=== PATIENT | female | born 1975 | race Two or more races ===

== ENCOUNTER 2020-05-22 11:59 | Inpatient (IN) | payer MEDICAID, OTHER ==
[~2020-05-22] VITALS: Ht 157.5 cm; Wt 80.6 kg
[2020-05-22] MEDS ORDERED: ACETAMINOPHEN 325 MG TAB PO ONE (13:15)
[2020-05-22] MEDS ORDERED: AZITHROMYCIN 500MG/ 250ML 250 ML IV ONE (13:15)
[2020-05-22] MEDS ORDERED: PANTOPRAZOLE 40 MG/10 ML VIAL INJ IV ONE (13:15)
[2020-05-22] MEDS ORDERED: ASCORBIC ACID 500 MG TAB PO ONE (13:15)
[2020-05-22] MEDS ORDERED: methylPREDNISolone SOD SUCC 125 MG/2 ML VL IV ONE (13:15)
[2020-05-22] MEDS ORDERED: ZINC SULFATE 220mg CAP or TAB PO ONE (13:15)
[2020-05-22 14:27] LABS: Basophils # (auto) 0 10 ^3/uL (0-0.2); Eosinophils # (auto) 0 10 ^3/uL (0-0.8); Lymphocytes # (auto) 0.6 10 ^3/uL (0.4-5.4); Monocytes # (auto) 0.2 10 ^3/uL (0-1.3); White Blood Cell 3.4 10^3/uL (4.4-10.8)
[2020-05-22] MEDS ORDERED: ENOXAPARIN SOD 100 MG/1 ML SYRINGE SC ONE (14:30)
[2020-05-22 14:31] LABS: Basophils % (auto) 0.4 % (0.0-2.0); Lymphocytes % (auto) 17.6 % (10.0-50.0); Mean Corpuscular Hemoglobin 12.9 pg (28.0-32.0); Mean Corpuscular Hgb Conc. 25.8 g/dL (32.0-36.0); Monocytes % (auto) 7.1 % (0.0-12.0); Neutrophils # (auto) 2.5 10 ^3/uL (1.6-8.6); Neutrophils % (auto) 74.9 % (37.0-80.0); Nucleated Red Blood Cells % 0.7 %; Platelet Count (auto) 334 10^3/uL (140-450); Red Blood Cells 4.61 10^6/uL (4.0-5.20)
[2020-05-22 14:49] LABS: Albumin 3.5 g/dL (3.4-5.0); BUN/Creatinine Ratio 9.9; Calcium 7.8 mg/dL (8.5-10.1); Potassium 3.4 mmol/L (3.5-5.1)
[2020-05-22 14:51] LABS: Total Protein 7.9 g/dL (6.4-8.2)
[2020-05-22 14:55] LABS: Hemoglobin 5.9 g/dL (12.2-16.2)
[2020-05-22] MEDS ORDERED: SODIUM CHLORIDE 0.9% 1,000 ML IV SCH (14:57)
[2020-05-22] MEDS ORDERED: NITROGLYCERIN 0.4 MG SL TAB SL PRN (15:00)
[2020-05-22] MEDS ORDERED: MORPHINE SULF INJ 2 MG/ML SYRINGE 1ML IV PRN (15:00)
[2020-05-22 15:16] LABS: CRP High Sensitivity 7.09 mg/dL (< 0.3)
[2020-05-22] MEDS ORDERED: levoFLOXacin 500MG 100 ML IV ONE (15:30)
[2020-05-22] MEDS: SODIUM CHLORIDE 0.9% 1,000 ML IV SCH (15:48)
--- NOTE | 2020-05-22 16:05 | NUR ---
Telemetry admit from [facility] admitted to Telemetry unit after SBAR received. Patient oriented to AXEL MIDDLETON RN primary RN, unit, room, bed, and unit policies regarding patient care and visiting hours. Patient now on continuous telemetry monitoring, tele box #19 and telemetry reading on arrival to unit is SR. Patient placed on bedside oxygen, weighed by bedscale and encouraged to call if they need something. All questions and concerns addressed, patient verbalized understanding.
--- NOTE | 2020-05-22 17:30 | NUR ---
Temp Patient running temp of 100.4. Cooling measures preformed at this time. Will cont to monitor patient.
[2020-05-22 17:41] LABS: INR 0.99 (0.9-1.15); Partial Thromboplastin Time 30.3 sec (23.64-32.05)
[2020-05-22 17:43] VITALS: BP 105/43
[2020-05-22 18:39] LABS: Hematocrit 23.4 % (36.0-46.0)
--- NOTE | 2020-05-22 18:45 | NUR ---
Hospitalist Paged hospitalist Surinder regarding patient having no diet. Per MD Cadena, place patient on a regular diet. MD Cadena also made aware of patient HGB 6.1 and HCT 23.4. Per MD Cadena, order one unit of RBC's. Will carry out new orders and cont to monitor patient.
[2020-05-22 18:53] LABS: Hemoglobin 6.1 g/dL (12.2-16.2)
--- NOTE | 2020-05-22 19:30 | NUR ---
Endorsed care to night RN, including HGB and RBC'S orders.
[2020-05-22 22:00] VITALS: BP 109/54
[2020-05-22] MEDS: ALBUTEROL SULF HFA 90MCG INH 200DOSE IN SCH ×2 (22:00→22:45)
[2020-05-22 22:30] VITALS: BP 106/50
[2020-05-22] MEDS: metroNIDAZOLE 500MG/100ML 100 ML IV SCH (22:42)
[2020-05-22] MEDS: PANTOPRAZOLE 40 MG TAB PO SCH (22:43)
[2020-05-22 22:45] VITALS: BP 107/59
[2020-05-22 23:11] VITALS: BP 107/59
--- NOTE | 2020-05-22 23:21 | NUR ---
RT NOTE: PT ASSESSED FOR MDI TX, PT DENIES SOB AT THIS TIME. NO RESPIRATORY HISTORY NOTED. BS DECREASED WITH NO WHEEZING. SPO2 96%, HR 74, RR 16. WILL WAIT FOR COVID RESULTS FOR TX. PT NOTIFIED IF SOB OCCURS TO HAVE RT PAGED.
--- NOTE | 2020-05-23 | NUR ---
H & h NOT DONE AT THIS TIME, PATIENT IS STILL BEING TRANSFUSED.
[2020-05-23 00:23] VITALS: BP 109/55
[2020-05-23 01:23] LABS: Urine Bacteria FEW /hpf (None Seen); Urine Blood 3+ /uL (Negative); Urine WBC 343 /hpf (0 - 5); Urine WBC Clumps PRESENT /hpf (None Seen)
[2020-05-23] MEDS: SODIUM CHLORIDE 0.9% 1,000 ML IV SCH ×3 (01:38→15:49)
--- NOTE | 2020-05-23 01:40 | NUR ---
TRANSFUSION DONE, NO SIGNS AND SYMPTOMS OF TRANSFUSION REACTION NOTED. CONTINUE PATIENT CARE
--- NOTE | 2020-05-23 02:05 | NUR ---
PAGED HOSPITALIST REGARDING COVID-19 POSITIVE RESULT.
[2020-05-23 05:00] VITALS: BP 99/55
[2020-05-23] MEDS: metroNIDAZOLE 500MG/100ML 100 ML IV SCH ×2 (05:16→13:37)
[2020-05-23 05:51] LABS: Basophils # (auto) 0 10 ^3/uL (0-0.2); Eosinophils # (auto) 0 10 ^3/uL (0-0.8); Lymphocytes # (auto) 0.7 10 ^3/uL (0.4-5.4); Monocytes # (auto) 0.2 10 ^3/uL (0-1.3)
[2020-05-23 05:53] LABS: Basophils % (auto) 0.3 % (0.0-2.0); Eosinophils % (auto) 0.1 % (0.0-7.0); Hematocrit 26.6 % (36.0-46.0); Hemoglobin 7.3 g/dL (12.2-16.2); Lymphocytes % (auto) 18.4 % (10.0-50.0); Mean Corpuscular Hemoglobin 15.4 pg (28.0-32.0); Mean Corpuscular Hgb Conc. 27.6 g/dL (32.0-36.0); Monocytes % (auto) 6.2 % (0.0-12.0); Nucleated Red Blood Cells % 1.5 %; Platelet Count (auto) 338 10^3/uL (140-450); Red Blood Cells 4.75 10^6/uL (4.0-5.20)
[2020-05-23 05:54] LABS: Red Cell Distribution Width 27.4 % (11.8-14.3)
[2020-05-23 06:03] LABS: Albumin 3.3 g/dL (3.4-5.0); Calcium 8.2 mg/dL (8.5-10.1); Potassium 3.6 mmol/L (3.5-5.1)
[2020-05-23 06:06] LABS: BUN/Creatinine Ratio 13.2; Bilirubin, Total 0.8 mg/dL (0.2-1.0); Total Protein 7.2 g/dL (6.4-8.2)
[2020-05-23] MEDS: ALBUTEROL SULF HFA 90MCG INH 200DOSE IN SCH ×3 (07:15→21:45)
[2020-05-23 08:00] VITALS: BP 94/45
[2020-05-23] MEDS: ACETAMINOPHEN 500 MG TAB PO PRN ×3 (08:12→23:42)
--- NOTE | 2020-05-23 08:15 | NUR ---
Received pt resting in bed, call light within reach, pt denies pain at this time, pt's temp 100.2, pt has ice pack, will medicate pt with Tylenol, will continue to monitor pt.
[2020-05-23] MEDS: ZINC SULFATE 220mg CAP or TAB PO SCH (09:00)
[2020-05-23] MEDS: PANTOPRAZOLE 40 MG TAB PO SCH ×2 (09:01→21:45)
[2020-05-23] MEDS: CHOLECALCIFEROL (VITD3) 1,000UNIT=25mCg TAB PO SCH (09:02)
[2020-05-23] MEDS ORDERED: levoFLOXacin 500MG 100 ML IV SCH (10:00)
[2020-05-23] MEDS ORDERED: ENOXAPARIN SOD 40 MG/0.4 ML SYRINGE SC SCH (10:00)
[2020-05-23] MEDS: ASCORBIC ACID 1,000 MG TAB PO SCH (12:22)
[2020-05-23 13:00] VITALS: BP 102/57
--- NOTE | 2020-05-23 13:20 | NUR ---
Dr. Ward at bed side to see pt, doctor discussed plan of care with pt.
--- NOTE | 2020-05-23 15:44 | NUR ---
Called Dr. Ward to ask for pain medication as per pt's request, pt reported generalized body pain, received orders for norco 5/325 mg po q6hr prn.
[2020-05-23] MEDS: HYDROcodone-ACET 5/325MG TAB PO PRN ×2 (15:50→21:45)
--- NOTE | 2020-05-23 15:50 | NUR ---
Pain medication Pt reported to have a headache 04/30, pt requested and given pain medication. Will continue to monitor pt.
--- NOTE | 2020-05-23 15:55 | NUR ---
Est energy needs 5512-3032 kcal (20-23kcal/kg 86.2kg) Est protein needs 50-65g (1-1.3g/kg IBW 50 kg) Will reassess prn. Addendum: 05/23/20 at [address] Amended: Links added.
[2020-05-23 16:39] VITALS: BP 116/49
[2020-05-23] MEDS ORDERED: SODIUM FERR GLUC 62.5MG/5ML 125 MG in SODIUM CHL 0.9% 100 ML IV ONE (17:00)
--- NOTE | 2020-05-23 17:00 | NUR ---
Cooling measures, started, ice packs given, removed extra blankets, will continue to monitor pt.
--- NOTE | 2020-05-23 19:10 | NUR ---
Opening Shift Note Assumed care of patient, awake and alert. No S/S of distress/SOB or pain. Cooling measures remain in place, will continue to monitor. Bed in lowest locked position, side rails up x2, call light within reach. COVID [address] Instructed on POC and to call for assist PRN, will continue to monitor for changes Q1hr and PRN.
--- NOTE | 2020-05-23 21:40 | NUR ---
Patient reporting 8/10 generalized body aches, requesting [place], will administer and continue to monitor.
[2020-05-23 22:00] VITALS: BP 106/54
--- NOTE | 2020-05-23 22:00 | NUR ---
Patient requesting medication for cough, classification counselor hospitalist paged, awaiting call back at this time.
--- NOTE | 2020-05-23 22:10 | NUR ---
Return call from information officer hospitalist Dr. Solo Aaron, new order received for Robitussin DM 10 ml every six hours PRN for cough. Order read back and verified, will implement as ordered and continue to monitor.
[2020-05-23] MEDS: guaiFENesin-DM 100/10mg/5ml SYR PO PRN (22:27)
--- NOTE | 2020-05-24 00:45 | NUR ---
Temperature 102.6 degrees Fahrenheit after Tylenol administration. Cooling measures remain in place, will continue to monitor.
--- NOTE | 2020-05-24 02:00 | NUR ---
Temperature 100.2 degrees Fahrenheit orally at this time. No s/s of distress. Will continue to monitor.
[2020-05-24] MEDS: guaiFENesin-DM 100/10mg/5ml SYR PO PRN (02:37)
[2020-05-24 05:00] VITALS: BP 114/51
[2020-05-24] MEDS: HYDROcodone-ACET 5/325MG TAB PO PRN (05:17)
[2020-05-24] MEDS: ALBUTEROL SULF HFA 90MCG INH 200DOSE IN SCH ×3 (05:17→22:31)
--- NOTE | 2020-05-24 05:17 | NUR ---
MID GIVEN BY MARBIN Perdomo
--- NOTE | 2020-05-24 06:40 | NUR ---
Closing Note Patient lying in bed, eyes closed, respirations even and unlabored, appears asleep. No s/s of distress. Patient awakens to name and touch. Bed in lowest locked position, side rails up x2, call light within reach. Temperature reassessed, 102.7 degrees Fahrenheit orally. Cooling measures remain in place. Will endorse care to dayshift RN.
--- NOTE | 2020-05-24 07:45 | NUR ---
Opening shift note Assumed care of patient from NOC RN. Patient is AOx4 no signs and symptoms of distress noted. Bed is in lowest locked position, side rials up x2 and call light within reach. Updated patient on plan of care and patient verbalized understanding. Will continue to monitor q1hr and PRN.
[2020-05-24 08:40] VITALS: BP 108/63
--- NOTE | 2020-05-24 09:34 | NUR ---
received call from Received call from Dr. Balbuena, per MD patient is to be seen outpatient once COVID negative. No new orders received at this time.
--- NOTE | 2020-05-24 11:45 | NUR ---
Cooling Measures applied. Patient currently has temp of 102.4 , cooling measures in place.
[2020-05-24] MEDS: PANTOPRAZOLE 40 MG TAB PO SCH ×2 (11:50→22:32)
[2020-05-24] MEDS: ZINC SULFATE 220mg CAP or TAB PO SCH (11:50)
[2020-05-24] MEDS: cefTRIAXone 1GM/50ML D5W 50 ML IV SCH (11:50)
[2020-05-24] MEDS: methylPREDNISolone SOD SUCC 40 MG/ML VL IV SCH ×2 (11:50→22:31)
[2020-05-24] MEDS: DOXYCYCLINE 100 MG TAB/CAP PO SCH ×2 (11:51→22:32)
[2020-05-24] MEDS: CHOLECALCIFEROL (VITD3) 1,000UNIT=25mCg TAB PO SCH (11:51)
[2020-05-24] MEDS: ASCORBIC ACID 1,000 MG TAB PO SCH (11:51)
[2020-05-24] MEDS: ACETAMINOPHEN 500 MG TAB PO PRN ×2 (11:52→14:18)
[2020-05-24 12:52] VITALS: BP 118/51
[2020-05-24] MEDS: SODIUM FERR GLUC 62.5MG/5ML 125 MG in SODIUM CHL 0.9% 100 ML IV SCH (13:56)
--- NOTE | 2020-05-24 14:00 | NUR ---
Physician rounding Dr. Ward at bedside. No new orders received, will continue care.
[2020-05-24 16:20] VITALS: BP 112/57
--- NOTE | 2020-05-24 19:29 | NUR ---
End of shift note Endorsed care to NOC MARBIN Mendoza. No signs and symptoms of distress noted.
--- NOTE | 2020-05-24 19:35 | NUR ---
OPENING SHIFT NOTE Assumed care of patient who is A&O x4. Currently on 4L NC, with mild SOB and noted cough. Denies pain at this time. Patient is ambulatory without the use of assistive devices at baseline. Two PIVs in left forearm. Lateral IV is tender with flushing, will be d/c'd. Medial IV is intact and patent. POC discussed and all questions answered. Bed is in low locked position with side rails up x2. Call light is within reach and patient encouraged to call for assistance when needed. Will continue to monitor for changes PRN.
[2020-05-24 20:00] VITALS: BP 114/56
--- NOTE | 2020-05-24 22:14 | NUR ---
RN @ BEDSIDE AND STATES SHE ADMINISTERED MDI TO PT, NO DISTRESS NOTED. Addendum: 05/24/20 at [address]3 [address] RT Amended: Links added.
--- NOTE | 2020-05-24 22:14 | NUR ---
HUMIDIFIER ADDED TO PT'S NC @ THIS TIME AND LITER FLOW INCREASED TO 6L. Addendum: 05/24/20 at 2243 by [address] POWELL RT Amended: Links added.
[2020-05-24 22:21] VITALS: BP 114/56
--- NOTE | 2020-05-25 00:24 | NUR ---
TEMPERATURE Oral temperature is 100.1. Cooling measures applied. Will reassess.
--- NOTE | 2020-05-25 02:08 | NUR ---
TEMPERATURE Temperature reassessed and is 103.5 orally. Acetaminophen 1000mg administered according to orders. Cooling measures continue.
[2020-05-25] MEDS: ACETAMINOPHEN 500 MG TAB PO PRN (02:19)
--- NOTE | 2020-05-25 04:30 | NUR ---
TEMPERATURE Oral temperature is 99.1 at this time. Continuing care.
[2020-05-25 05:42] VITALS: BP 104/56
[2020-05-25] MEDS: ALBUTEROL SULF HFA 90MCG INH 200DOSE IN SCH ×3 (06:40→21:29)
[2020-05-25] MEDS: methylPREDNISolone SOD SUCC 40 MG/ML VL IV SCH ×2 (08:44→20:41)
[2020-05-25] MEDS: cefTRIAXone 1GM/50ML D5W 50 ML IV SCH (08:44)
[2020-05-25] MEDS: CHOLECALCIFEROL (VITD3) 1,000UNIT=25mCg TAB PO SCH (08:45)
[2020-05-25] MEDS: DOXYCYCLINE 100 MG TAB/CAP PO SCH (08:45)
[2020-05-25] MEDS: PANTOPRAZOLE 40 MG TAB PO SCH ×2 (08:45→20:41)
[2020-05-25] MEDS: ZINC SULFATE 220mg CAP or TAB PO SCH (08:45)
[2020-05-25] MEDS: ASCORBIC ACID 1,000 MG TAB PO SCH (08:48)
[2020-05-25 09:00] VITALS: BP 104/67
[2020-05-25] MEDS ORDERED: AZITHROMYCIN 500MG/ 250ML 250 ML IV ONE (10:30)
[2020-05-25] MEDS ORDERED: POTASSIUM CHL 20 Meq TABLET PO ONE (10:30)
[2020-05-25] MEDS ORDERED: FUROSEMIDE 40 MG TAB PO ONE (10:30)
[2020-05-25 12:54] VITALS: BP 104/67
[2020-05-25] MEDS: SODIUM FERR GLUC 62.5MG/5ML 125 MG in SODIUM CHL 0.9% 100 ML IV SCH (13:19)
[2020-05-25 17:09] VITALS: BP 111/63
--- NOTE | 2020-05-25 19:30 | NUR ---
Opening Shift Note Assumed care of patient, awake and alert. No S/S of distress/SOB or pain. Insructed on POC and to callfor assist PRN, will continue to monitor for changes Q1hr and PRN. Fall and safety precautions in place. Call light within reach.
--- NOTE | 2020-05-25 19:45 | NUR ---
End of shift note Endorsed care of patient to NOC MARBIN Mendoza, no s/s of distress noted.
[2020-05-25 21:29] VITALS: BP 111/63
[2020-05-25 22:00] VITALS: BP 124/71
--- NOTE | 2020-05-25 22:15 | NUR ---
OXYGEN Patient currently satting in 80s while on 6L nasal cannula. RT currently at station with oxymizer in hand. Patient placed on 6L oxymizer, O2 sat increased to 95%. Will continue to monitor
--- NOTE | 2020-05-25 23:40 | NUR ---
Respiratory note: AT NURSES STATION, SPO2 NOTED AT 87-89% ON MONITOR. PT ON 6L NASAL CANNULA. RN NOTIFIED OF LOW SPO2 AND RECOMMENDED PT BE PLACED ON OXYMIZER. RN PLACED PT ON 6L OXYMIZER, SPO2 IMPROVED 93-95%. WILL CONTINUE TO MONITOR.
[2020-05-26] VITALS (9 sets, daily range): BP systolic 114–131; BP diastolic 58–73
[2020-05-26] MEDS: ALBUTEROL SULF HFA 90MCG INH 200DOSE IN SCH ×3 (06:49→21:11)
--- NOTE | 2020-05-26 06:50 | NUR ---
Respiratory note: HR 60, RR 16, SPO2 96% ON 8 L OXYMIZER, BS ARE CLEAR. INHALER ADMINISTERED, TOLERATED WELL. NO SIGNS OR SYMPTOMS OF RESPIRATORY DISTRESS NOTED AT THIS TIME.
[2020-05-26 07:09] LABS: Basophils # (auto) 0 10 ^3/uL (0-0.2); Eosinophils # (auto) 0 10 ^3/uL (0-0.8); Neutrophils # (auto) 4.9 10 ^3/uL (1.6-8.6); White Blood Cell 6.1 10^3/uL (4.4-10.8)
[2020-05-26 07:11] LABS: Basophils % (auto) 0.1 % (0.0-2.0); Hematocrit 25.3 % (36.0-46.0); Lymphocytes # (auto) 0.7 10 ^3/uL (0.4-5.4); Lymphocytes % (auto) 11.9 % (10.0-50.0); Mean Corpuscular Hemoglobin 15.6 pg (28.0-32.0); Mean Corpuscular Hgb Conc. 27.3 g/dL (32.0-36.0); Mean Corpuscular Volume 57.3 fL (80.0-100.0); Monocytes # (auto) 0.5 10 ^3/uL (0-1.3); Monocytes % (auto) 8.2 % (0.0-12.0); Neutrophils % (auto) 79.8 % (37.0-80.0); Platelet Count (auto) 351 10^3/uL (140-450); Red Blood Cells 4.41 10^6/uL (4.0-5.20)
[2020-05-26 07:21] LABS: Red Cell Distribution Width 33.2 % (11.8-14.3)
[2020-05-26 07:23] LABS: Hemoglobin 6.9 g/dL (12.2-16.2)
[2020-05-26 07:27] LABS: Albumin 2.8 g/dL (3.4-5.0); Calcium 8.5 mg/dL (8.5-10.1)
--- NOTE | 2020-05-26 07:30 | NUR ---
Opening Shift Note Assumed care of patient, awake and alert. No S/S of distress/SOB or pain. Instructed on POC and to call for assist PRN, will continue to monitor for changes Q1hr and PRN. Fall precautions in place per safety protocol.
[2020-05-26 07:33] LABS: BUN/Creatinine Ratio 33.3; Bilirubin, Total 0.6 mg/dL (0.2-1.0); Total Protein 6.8 g/dL (6.4-8.2)
[2020-05-26] MEDS ORDERED: FUROSEMIDE 20 MG/2 ML VIAL IV ONE (09:15)
[2020-05-26] MEDS ORDERED: FUROSEMIDE 40 MG TAB PO SCH (10:00)
[2020-05-26] MEDS: cefTRIAXone 1GM/50ML D5W 50 ML IV SCH (10:08)
[2020-05-26] MEDS: AZITHROMYCIN 500MG/ 250ML 250 ML IV SCH (10:09)
[2020-05-26] MEDS: methylPREDNISolone SOD SUCC 40 MG/ML VL IV SCH ×2 (10:09→21:11)
[2020-05-26] MEDS: ZINC SULFATE 220mg CAP or TAB PO SCH (10:09)
[2020-05-26] MEDS: PANTOPRAZOLE 40 MG TAB PO SCH ×2 (10:10→21:10)
[2020-05-26] MEDS: CHOLECALCIFEROL (VITD3) 1,000UNIT=25mCg TAB PO SCH (10:10)
[2020-05-26] MEDS: POTASSIUM CHL 20 Meq TABLET PO SCH (10:10)
[2020-05-26] MEDS: ASCORBIC ACID 1,000 MG TAB PO SCH (10:10)
[2020-05-26] MEDS: SODIUM FERR GLUC 62.5MG/5ML 125 MG in SODIUM CHL 0.9% 100 ML IV SCH (12:00)
--- NOTE | 2020-05-26 13:35 | NUR ---
Respiratory note: HR 73, RR 16, SPO2 96% ON 8 L OXYMIZER, BS ARE CLEAR. MDI ADMINISTERED, TOLERATED WELL. NO SIGNS OR SYMPTOMS OF RESPIRATORY DISTRESS NOTED AT THIS TIME.
--- NOTE | 2020-05-26 15:25 | NUR ---
Nutrition Followup Note Wt 81.5kg Unable to speak to pt d/t pt is COVID positive in the COVID wing. Pt appetite is good aeb pt with adequate po intake aeb pt with 100% po intake x2 days per RN doc Est energy needs 8970-8408 kcal (20-23kcal/kg 86.2kg) Est protein needs 50-65g (1-1.3g/kg IBW 50 kg) Will reassess prn. Labs: BUN 23H, GLUC 129H, Alb 2.8L BM: 1 05/26 per RN doc Skin: BS 21 low risk full details in child care group leader doc PES: Obesity r/t caloric intake in excess of needs aeb pt BMI is 34.8 kg/m2 Comments 1) Continue to monitor po intake, labs, skin 2) Refer pt to OPD on dc 3) Continue current plan of care Expected Outcomes/Goals: 1) Pt po intake >75% 2) Pt will maintain wt while in hospital 3) F/u 3-5 days
--- NOTE | 2020-05-26 18:15 | NUR ---
Blood transfusion Blood transfusion of 1 unit RBC given to patient. No reactions noted, VSS, patient tolerated transfusion well. Will cont to monitor patient.
[2020-05-27 05:15] VITALS: BP 108/62
[2020-05-27] MEDS: ALBUTEROL SULF HFA 90MCG INH 200DOSE IN SCH ×3 (06:07→21:42)
[2020-05-27 06:47] LABS: Basophils # (auto) 0 10 ^3/uL (0-0.2); Basophils % (auto) 0.1 % (0.0-2.0); Eosinophils # (auto) 0 10 ^3/uL (0-0.8); Hemoglobin 8.2 g/dL (12.2-16.2); Lymphocytes # (auto) 0.9 10 ^3/uL (0.4-5.4); Monocytes # (auto) 0.5 10 ^3/uL (0-1.3); Neutrophils # (auto) 5.1 10 ^3/uL (1.6-8.6); White Blood Cell 6.5 10^3/uL (4.4-10.8)
[2020-05-27 06:49] LABS: Hematocrit 28.8 % (36.0-46.0); Lymphocytes % (auto) 13.6 % (10.0-50.0); Mean Corpuscular Hemoglobin 17.8 pg (28.0-32.0); Mean Corpuscular Hgb Conc. 28.4 g/dL (32.0-36.0); Mean Corpuscular Volume 62.7 fL (80.0-100.0); Neutrophils % (auto) 78.3 % (37.0-80.0); Nucleated Red Blood Cells % 0.5 %; Platelet Count (auto) 339 10^3/uL (140-450); Red Blood Cells 4.59 10^6/uL (4.0-5.20)
[2020-05-27 07:11] LABS: % Iron Saturation 14.8 % (15-50)
[2020-05-27 07:13] LABS: Red Cell Distribution Width 40.1 % (11.8-14.3)
[2020-05-27 09:09] VITALS: BP 118/61
[2020-05-27] MEDS: cefTRIAXone 1GM/50ML D5W 50 ML IV SCH (09:20)
[2020-05-27] MEDS: ZINC SULFATE 220mg CAP or TAB PO SCH (09:21)
[2020-05-27] MEDS: PANTOPRAZOLE 40 MG TAB PO SCH ×2 (09:21→21:43)
[2020-05-27] MEDS: POTASSIUM CHL 20 Meq TABLET PO SCH (09:21)
[2020-05-27] MEDS: methylPREDNISolone SOD SUCC 40 MG/ML VL IV SCH ×2 (09:21→21:42)
[2020-05-27] MEDS: CHOLECALCIFEROL (VITD3) 1,000UNIT=25mCg TAB PO SCH (09:22)
[2020-05-27] MEDS: ASCORBIC ACID 1,000 MG TAB PO SCH (09:22)
[2020-05-27] MEDS: SODIUM FERR GLUC 62.5MG/5ML 125 MG in SODIUM CHL 0.9% 100 ML IV SCH (13:22)
[2020-05-27] MEDS ORDERED: POTASSIUM CHL 10 Meq TABLET PO ONE (14:30)
[2020-05-27] MEDS ORDERED: FUROSEMIDE 20 MG TAB PO ONE (14:30)
[2020-05-27] MEDS: AZITHROMYCIN 500MG/ 250ML 250 ML IV SCH (15:10)
[2020-05-27 16:26] VITALS: BP 120/63
--- NOTE | 2020-05-27 19:50 | NUR ---
Opening Shift Note Assumed care of patient, awake and alert. No S/S of distress/SOB or pain. Instructed on POC and to call for assist PRN. Bed in lowest locked position, call light within reach, side rails up x2. Will continue to monitor for changes Q1hr and PRN.
--- NOTE | 2020-05-27 21:00 | NUR ---
IV insertion IV access obtained, via clean sterile technique by inserting 22 gauge catheter at right AC after 1 attempt. IV secured properly. No trauma to site. Patient tolerated procedure well.
--- NOTE | 2020-05-27 22:05 | NUR ---
MDI ADMINISTERED BY MARBIN RICHMOND.
[2020-05-27 22:44] VITALS: BP 109/70
[2020-05-28 05:00] VITALS: BP 110/65
[2020-05-28] MEDS: ALBUTEROL SULF HFA 90MCG INH 200DOSE IN SCH ×3 (07:20→21:52)
--- NOTE | 2020-05-28 07:20 | NUR ---
Respiratory note: PT IS AWAKE, AND RESTING COMFORTABLY. NO RESPIRATORY DISTRESS NOTED. SPO2 95% ON 5L OXYMIZER 46% FIO2, HR 60, RR 18, BS CLEAR/DIMINISHED BILATERALLY. 1 PUFF ALBUTEROL (90MCG) GIVEN VIA MDI WITH CHAMBER. NO ADVERSE EFFECTS NOTED. NO FURTHER RESPIRATORY INTERVENTIONS INDICATED AT THIS TIME. CHARTING COMPLETE FROM OUTSIDE OF PT ROOM DUE TO COVID-19 PRECAUTIONS/PROTOCOL
--- NOTE | 2020-05-28 07:30 | NUR ---
Opening Shift Note Assumed care of patient, awake and alert. No S/S of distress/SOB or pain on 6L oxymizer at 98%, moved down to 5L patient tolerating it well, will continue to monitor. Instructed on POC and to call for assist PRN, will continue to monitor for changes Q1hr and PRN. Bed in low and locked position, rails up x2, no-slip socks on.
[2020-05-28 09:00] VITALS: BP 112/66
--- NOTE | 2020-05-28 09:30 | NUR ---
DECREASED OXYGEN DEMAD PLACED PATIENT ON NASAL CANNULA AT 5L, PATIENT TOLERATING WELL AFTER 20 MINUTES, 97%, NOTIFIED DR ALLEN, NEW ORDERS FOR DISCHARGE, OXYGEN TO BE ORDERED FOR PATIENT TO TAKE HOME, PATIENT MADE AWARE. Addendum: 05/28/20 at 1103 by ALYSSA REBOLLEDO RN RN DEMAND
[2020-05-28] MEDS ORDERED: DEXT1SYP9 PO (10:14)
[2020-05-28] MEDS ORDERED: METH4PAK PO (10:14)
[2020-05-28] MEDS ORDERED: PANT40T PO (10:14)
[2020-05-28] MEDS ORDERED: ALBUAER3 IN (10:14)
[2020-05-28] MEDS ORDERED: FER325T PO (10:14)
[2020-05-28] MEDS ORDERED: AZIT500T66 PO (10:14)
[2020-05-28] MEDS ORDERED: ASCO10003 PO (10:14)
[2020-05-28] MEDS: PANTOPRAZOLE 40 MG TAB PO SCH ×2 (11:01→21:52)
[2020-05-28] MEDS: cefTRIAXone 1GM/50ML D5W 50 ML IV SCH (11:01)
[2020-05-28] MEDS: AZITHROMYCIN 500MG/ 250ML 250 ML IV SCH (11:01)
[2020-05-28] MEDS: ZINC SULFATE 220mg CAP or TAB PO SCH (11:01)
[2020-05-28] MEDS: CHOLECALCIFEROL (VITD3) 1,000UNIT=25mCg TAB PO SCH (11:01)
[2020-05-28] MEDS: ASCORBIC ACID 1,000 MG TAB PO SCH (11:01)
[2020-05-28] MEDS: POTASSIUM CHL 20 Meq TABLET PO SCH (11:01)
[2020-05-28] MEDS: methylPREDNISolone SOD SUCC 40 MG/ML VL IV SCH ×2 (11:02→21:53)
[2020-05-28] MEDS: SODIUM FERR GLUC 62.5MG/5ML 125 MG in SODIUM CHL 0.9% 100 ML IV SCH (12:00)
[2020-05-28 13:00] VITALS: BP 117/69
--- NOTE | 2020-05-28 13:20 | NUR ---
DR ALLEN AT BEDSIDE
--- NOTE | 2020-05-28 14:09 | NUR ---
FAMILY CALL PASSWORD VERIFIED, SPOKE TO [place]-DAUGHTER, UPDATED ON PLAN OF CARE, ALL QUESTIONS ANSWERED.
--- NOTE | 2020-05-28 14:10 | NUR ---
Respiratory note: PT IS RESTING COMFORTABLY. NO RESPIRATORY DISTRESS NOTED. SPO2 98% ON 5L NC, HR 60, RR 19, BS CLEAR/DIMINISHED BILATERALLY. 1 PUFF ALBUTEROL (90MCG) GIVEN VIA MDI WITH CHAMBER. NO ADVERSE EFFECTS NOTED. NO FURTHER RESPIRATORY INTERVENTIONS INDICATED AT THIS TIME. CHARTING COMPLETE FROM OUTSIDE OF PT ROOM DUE TO COVID-19 PRECAUTIONS/PROTOCOL
[2020-05-28 14:22] VITALS: BP 112/66
--- NOTE | 2020-05-28 16:46 | NUR ---
assessment Patient is a 45 year old female who is covid positive. Per patients omar Angella prior to admission patient lived home with family and was independent. Patients PCP is Dr Middleton. Patient has no insurance. Patient has been assessed by Castillo Abel of [facility]. Patients Medi-shar is pending per Castillo. I have provided patient with resources for [facility], Dr. Sanderson, and [facility] urgent care for follow up visits. I have provided patient with a prescription card from community assistance program. Patient will need home . [facility] will satisfy order. Angella informed me patient will have a room to isolate and patient will have family to care for her. Angella verbalized understanding and agreed to discharge plan home. Addendum: 05/28/20 at 1650 by Nga TAFOYA Amended: Links added.
[2020-05-28 17:00] VITALS: BP 109/60
--- NOTE | 2020-05-28 17:27 | NUR ---
D/C Planning Regarding social service consult for home oxygen at 5 l/min. Patient Med-Jim is pending. Faxed clinical information to [facility]. Annie with [facility] [phone] advised me patient needs to fill out a No Insurance COVID form that needs to be faxed back to them. Once they received form they will fax to their Corporate office for approval if they are able to obtain approval tonight oxygen will be deliver to front lobby if not by tomorrow morning. Informed MARBIN Jackson. Faxed form to nurses station on [address]. Advised MARBIN Jackson to fax completed form to [facility]. Per MARBIN Jackson form has been faxed to [facility]. [facility]
--- NOTE | 2020-05-28 18:19 | NUR ---
CALL TO [facility] SPOKE TO ANSWERING SERVICE, CHEMO, LEFT CALL BACK INFORMATION REGARDING ETA FOR DELIVERY OF OXYGEN. AWAITING CALL BACK FROM UROLOGIC SURGEON.
--- NOTE | 2020-05-28 18:51 | NUR ---
[facility] CALL BACK STILL PENDING APPROVAL FROM CORPORATE, SPOKE TO SECRETARIAL TEACHER, JACI, AND HE STATES THAT IT WILL MOST LIKELY BE TOMORROW. DISCHARGE IS DATED WITH CONDITIONS OF OXYGEN DELIVERED. PLACE ON HOLD FOR NOW, PATIENT INFORMED. MEDICATIONS DISBURSED FROM [facility] DELIVERED TO PATIENT BEDSIDE, INSTRUCTED NOT TO TAKE THEM WHILE STILL HERE, PATIENT VERBALIZES UNDERSTANDING.
[2020-05-28 22:00] VITALS: BP 121/67
[2020-05-29 05:00] VITALS: BP 105/58
--- NOTE | 2020-05-29 07:24 | NUR ---
Opening Shift Note Assumed care of patient, awake and alert. No S/S of distress/SOB or pain. Instructed on POC and to call for assist PRN. Bed in lowest locked position, call light within reach, side rails up x2, fall precautions in place. Will continue to monitor for changes Q1hr and PRN.
[2020-05-29] MEDS: ALBUTEROL SULF HFA 90MCG INH 200DOSE IN SCH (08:22)
--- NOTE | 2020-05-29 08:51 | NUR ---
CASE RONNIE CALLED INFORMED O2 WILL BE DELIVERED THIS AM AND PATIENT IS CLEAR FOR DISCHARGE
[2020-05-29] MEDS: cefTRIAXone 1GM/50ML D5W 50 ML IV SCH (08:52)
[2020-05-29] MEDS: methylPREDNISolone SOD SUCC 40 MG/ML VL IV SCH (08:52)
[2020-05-29] MEDS: AZITHROMYCIN 500MG/ 250ML 250 ML IV SCH (08:54)
[2020-05-29] MEDS: PANTOPRAZOLE 40 MG TAB PO SCH (08:55)
[2020-05-29] MEDS: ASCORBIC ACID 1,000 MG TAB PO SCH (08:55)
[2020-05-29] MEDS: POTASSIUM CHL 20 Meq TABLET PO SCH (08:55)
[2020-05-29] MEDS: CHOLECALCIFEROL (VITD3) 1,000UNIT=25mCg TAB PO SCH (08:55)
[2020-05-29] MEDS: ZINC SULFATE 220mg CAP or TAB PO SCH (08:55)
[2020-05-29 09:00] VITALS: BP 115/68
--- NOTE | 2020-05-29 10:04 | NUR ---
Per pt family cannot come get her till around noon
--- NOTE | 2020-05-29 12:46 | NUR ---
Nutrition Followup Notes Wt 80.6 kg Unable to speak to pt d/t pt is COVID positive. Pt appetite is good aeb 75% po intake over 3 mealsper RN doc. Pt with no distress per RN doc. Will continue to monitor PO status, skin status, pertinent labs and weight trends. Will f/u in 3-5 days. Est energy needs 6124-9366 kcal (20-23kcal/kg 86.2kg) Est protein needs 50-65g (1-1.3g/kg IBW 50 kg) Will reassess prn. Labs: BUN 23H, GLUC 129H, Alb 2.8L BM: Pt had 4 BM on 05/28 per RN doc Skin: BS 20 low risk full details in skin care consultant doc PES: Obesity r/t caloric intake in excess of needs aeb pt BMI is 34.8 kg/m2 Comments 1) Continue to monitor po intake, labs, skin 2) Refer pt to OPD on dc 3) Continue current plan of care
== END 2020-05-29 12:15 | disposition home or self-care (01) | DRG 137 ==
LOC: ER 11:59 → TELE 12:00 → TELE-EAST 16:16
PROVIDERS: ADMIT Internal Medicine; ATTEND Internal Medicine
PROC: 30233N1 Transfusion of Nonautologous Red Blood Cells into Peripheral Vein, Percutaneous Approach (ICD-10-PCS; principal; 2020-05-22)
DX: U07.1 COVID-19 (principal); J96.00 Acute respiratory failure, unspecified whether with hypoxia or hypercapnia; J12.89 Other viral pneumonia; N92.0 Excessive and frequent menstruation with regular cycle; D64.9 Anemia, unspecified; D25.9 Leiomyoma of uterus, unspecified; N83.202 Unspecified ovarian cyst, left side; R00.1 Bradycardia, unspecified; Z83.3 Family history of diabetes mellitus; R65.10 Systemic inflammatory response syndrome (SIRS) of non-infectious origin without acute organ dysfunction
CPT/HCPCS: 36415; 71045; 76856; 80053; 81001; 82270; 82378; 82728; 83540; 83550; 83605; 83615; 83735; 83880; 84443; 85014; 85018; 85025; 85045; 85379; 85610; 85730; 86141; 86850; 86900; 86901; 86920; 87040; 87070; 87804; 87880; 93005; 94640; 96365; 96372; 96375; 99291; C9113; G0378; J0696; J1956; J3490

== ENCOUNTER 2020-06-09 06:33 | Emergency (ER) | payer MEDICAID ==
[~2020-06-09] VITALS: Ht 157.5 cm; Wt 81.6 kg
[~2020-06-09 06:33] MED LIST: ALBUAER3 IN; ASCO10003 PO; AZIT500T66 PO; DEXT1SYP9 PO; FER325T PO; METH4PAK PO; PANT40T PO
[2020-06-09 07:15] VITALS: BP 118/50
[2020-06-09] MEDS ORDERED: DONNATAL 5ml ORAL Elix (BELLADONNA ALK-PHENOBARB) PO ONE (07:15)
[2020-06-09] MEDS ORDERED: LIDOCAINE VISCOUS 2% 15ML UD PO ONE (07:15)
[2020-06-09] MEDS ORDERED: ALUM & MAG HYDROX-SIMETH LIQ(MAALOX) 30 ML PO ONE (07:15)
[2020-06-09 08:28] LABS: Basophils # (auto) 0.1 10 ^3/uL (0-0.2); Eosinophils # (auto) 0 10 ^3/uL (0-0.8); Eosinophils % (auto) 0.2 % (0.0-7.0); Hemoglobin 11.7 g/dL (12.2-16.2); Lymphocytes # (auto) 0.4 10 ^3/uL (0.4-5.4); Lymphocytes % (auto) 5.1 % (10.0-50.0); Monocytes # (auto) 0.4 10 ^3/uL (0-1.3)
[2020-06-09 08:30] LABS: Basophils % (auto) 1.5 % (0.0-2.0); Hematocrit 37.8 % (36.0-46.0); Mean Corpuscular Hemoglobin 22.9 pg (28.0-32.0); Mean Corpuscular Hgb Conc. 30.8 g/dL (32.0-36.0); Mean Corpuscular Volume 74.2 fL (80.0-100.0); Monocytes % (auto) 4.9 % (0.0-12.0); Neutrophils # (auto) 7.1 10 ^3/uL (1.6-8.6); Neutrophils % (auto) 88.3 % (37.0-80.0); Platelet Count (auto) 330 10^3/uL (140-450); Red Blood Cells 5.09 10^6/uL (4.0-5.20)
[2020-06-09 08:32] LABS: Red Cell Distribution Width 43.2 % (11.8-14.3)
[2020-06-09 08:33] LABS: Albumin 3.7 g/dL (3.4-5.0); Anion Gap 8 (5-15); Blood Urea Nitrogen 10 mg/dL (7-18); Calcium 8.8 mg/dL (8.5-10.1); Carbon Dioxide 22 mmol/L (21-32); Chloride 108 mmol/L (98-107); Glucose 130 mg/dL (74-106); Lipase 98 U/L (73-393); Potassium 3.8 mmol/L (3.5-5.1); Sodium 138 mmol/L (136-145)
[2020-06-09 08:40] LABS: Alanine Aminotransferase 23 U/L (13-56); Alkaline Phosphatase 90 U/L (45-117); Aspartate Aminotransferase 12 U/L (15-37); BUN/Creatinine Ratio 16.4; Bilirubin, Total 0.8 mg/dL (0.2-1.0); GFR African American 136 mL/min; GFR Non-African American 113 mL/min; Total Protein 7.4 g/dL (6.4-8.2)
== END 2020-06-09 11:12 | disposition home or self-care (01) ==
LOC: ER 06:33
DX: K29.70 Gastritis, unspecified, without bleeding (principal); K80.20 Calculus of gallbladder without cholecystitis without obstruction; Z86.19 Personal history of other infectious and parasitic diseases; Z98.890 Other specified postprocedural states; Z79.899 Other long term (current) drug therapy
CPT/HCPCS: 36415; 71045; 74176; 76705; 80053; 83690; 84484; 85025